=== PATIENT | female | born 1980 | race Caucasian/White ===

== ENCOUNTER 2018-09-01 17:02 | Emergency (ER) | payer MEDICAID ==
[~2018-09-01] VITALS: Ht 152.4 cm; Wt 68.0 kg
--- NOTE | 2018-09-01 17:04 | NUR ---
Arrived via [facility] after 3 tonic clonic seizures today. Reports that she has been taking her Dilantin as prescribed, has not been drinking today and has been sleeping well. Patient to ER bed 6 to gown for evaluation. Side rails up. Seizure Precautions in place. Report given to César SUBRAMANIAN.
--- NOTE | 2018-09-01 17:06 | NUR ---
Patient to ER bed 6 to gown for evaluation. Side rails
--- NOTE | 2018-09-01 17:06 | NUR ---
ER at bedside examining patient.
[2018-09-01 17:07] VITALS: BP_SYST 108
[2018-09-01] MEDS ORDERED: NACL 0.9% 1,000 ML IV ONE (17:15)
--- NOTE | 2018-09-01 17:30 | NUR ---
Pt medicated after seizure activity.Pt continuining to be monitor.
[2018-09-01] MEDS ORDERED: LORazepam 2 MG/ML VIAL (FOR ER USE) IVP ONE (17:45)
[2018-09-01] MEDS ORDERED: LORazepam 2 MG/ML VIAL (FOR ER USE) ONE (17:46)
[2018-09-01 17:50] LABS: BARBITURATE, URINE POSITIVE (NEG <=200); BENZODIAZEPINE, URINE NEGATIVE (NEG <=150); CANNABINOID, URINE NEGATIVE (NEG <=50); COCAINE, URINE NEGATIVE (NEG <=150); METHAMPHETAMINES SCREEN,URINE NEGATIVE (NEG <=500); OPIATE, URINE NEGATIVE (NEG <=100); PHENCYCLIDINE SCREEN,URINE NEGATIVE (NEG <=25); UR TRICYCLIC ANTIDEPRESSANTS NEGATIVE (NEG <=300); URINE AMPHETAMINE NEGATIVE (NEG <=500); URINE METHADONE NEGATIVE (NEG <=200); URINE OXYCODONE SCREEN NEGATIVE (NEG <=100); URINE PROPOXYPHENE SCREEN NEGATIVE (NEG <=300)
[2018-09-01 18:02] LABS: ANION GAP 13 (5-15); CHLORIDE 102 mmol/L (98-107); POTASSIUM 3.7 mmol/L (3.5-5.1); SODIUM SERUM 137 mmol/L (136-145)
[2018-09-01 18:03] LABS: CALCIUM 8.7 mg/dL (8.4-11.0); CREATININE 0.85 mg/dL (0.55-1.30); GFR AFRICAN AMERICAN 97 mL/min (>90); GLUCOSE 107 mg/dL (70-99); UREA NITROGEN, BLOOD 8 mg/dL (8-21)
[2018-09-01 18:10] LABS: ALANINE AMINOTRANSFERASE 30 U/L (12-78); ASPARTATE AMINOTRANSFERASE 20 U/L (10-37); TOTAL BILIRUBIN 0.2 mg/dL (0.0-1.0)
[2018-09-01 18:11] LABS: ACETAMINOPHEN < 1 ug/mL (1-30); ALBUMIN 3.7 g/dL (3.4-4.8); ALCOHOL, BLOOD < 3 mg/dL (<10); PHENYTOIN (DILANTIN) 8.6 ug/mL (10.0-20.0)
[2018-09-01 18:18] LABS: HEMOGLOBIN 14.1 g/dL (12.0-16.0); MEAN CORPUSCULAR HEMOGLOBIN 31 pg (27-31); MEAN CORPUSCULAR HGB CONC 34 % (32-36); MEAN CORPUSCULAR VOLUME 92 fL (79.0-98.0); RED BLOOD CELL COUNT(AUTO) 4.56 MIL/uL (4.2-6.2); WHITE BLOOD COUNT (AUTO) 15.4 K/uL (4.8-10.8)
[2018-09-01 18:19] LABS: PLATELET COUNT (AUTO) 255 K/uL (130-430); RED CELL DISTRIBUTION WIDTH 12.3 % (9.0-15.0)
[2018-09-01] MEDS ORDERED: PHENYTOIN SODIUM INJ 500 MG in NS 100 ML IV ONE (18:30)
--- NOTE | 2018-09-01 18:40 | NUR ---
Pt tolerating seizure mediction.
[2018-09-01 19:31] LABS: BAND % (MANUAL) 9 % (0-6); BASOPHILS % (MANUAL) 0 % (0-2); EOSINOPHILS % (MANUAL) 0 % (0-7); LYMPHOCYTES % (MANUAL) 2 % (20-46); MONOCYTES % (MANUAL) 2 % (0-11)
--- NOTE | 2018-09-01 19:40 | NUR ---
Pt is resting in bed, no acute distress noted at this time. has been notified for discharge.
--- NOTE | 2018-09-01 20:40 | NUR ---
Patient given written and verbal discharge instructions and verbalizes understanding. ER MD discussed with patient the results and treatment provided. Patient in stable condition. ID arm band removed. Patient educated on pain management and to follow up with PMD. Pain Scale 0/10. Opportunity for questions provided and answered. Medication side effect fact sheet provided.
[2018-09-01 20:42] VITALS: BP_SYST 108
== END 2018-09-01 20:42 | disposition home or self-care (01) ==
LOC: SED 17:02
DX: S00.511A Abrasion of lip, initial encounter (principal); R56.9 Unspecified convulsions; W22.8XXA Striking against or struck by other objects, initial encounter; Y93.89 Activity, other specified; Y92.89 Other specified places as the place of occurrence of the external cause; Y99.8 Other external cause status
CPT/HCPCS: 36415; 80053; 80184; 80185; 80307; 85007; 85027; 96374; 96375; 99283; G0480; G0481; G0482; J1165; J2060